=== PATIENT | female | born 1980 | race Caucasian/White ===

== ENCOUNTER 2021-05-15 08:00 | Outpatient (CLI) | payer OTHER ==
[2021-05-15 21:47] LABS: CHLAMYDIA TRACHOMATIS DNA NEGATIVE (NEGATIVE); NEISSERIA GONORRHOEAE DNA NEGATIVE (NEGATIVE); TRICHOMONAS VAGINALIS DNA NEGATIVE (NEGATIVE)
== END 2021-05-15 23:59 | disposition home or self-care (01) ==
LOC: LAB.WC 08:00
PROVIDERS: ATTEND Advanced Practice Midwife
DX: Z00.00 Encounter for general adult medical examination without abnormal findings (principal); Z11.3 Encounter for screening for infections with a predominantly sexual mode of transmission
CPT/HCPCS: 87491; 87591; 87661

== ENCOUNTER 2021-07-17 15:39 | Outpatient (CLI) | payer OTHER ==
[2021-07-17 16:12] LABS: HCT - HEMATOCRIT 40.1 % (37.0-47.0); HGB - HEMOGLOBIN 13.3 g/dL (12.0-16.0); MEAN CORPUSCULAR HEMOGLOBIN 29.4 pg (27.0-31.0); MEAN CORPUSCULAR HGB CONC 33.2 g/dL (32.0-36.0); MEAN CORPUSCULAR VOLUME 88.7 fL (81.0-99.0); MEAN PLATELET VOLUME 13.5 fL (7.9-10.8); RED BLOOD COUNT 4.52 10^6/uL (4.20-5.40); RED CELL DISTRIBUTION WIDTH 12.7 % (12.0-15.0); WHITE BLOOD COUNT 7.4 x10^3/uL (4.8-10.8)
[2021-07-17 16:35] LABS: CHOL/HDL RATIO 2.6 (<4.4); CHOLESTEROL 189 mg/dL; HDL CHOLESTEROL 72 mg/dL; LDL CHOLESTEROL,CALCULATED 89 mg/dL; LDL/HDL RATIO 1.2 (<4.4); TRIGLYCERIDES 139 mg/dL; VLDL CHOLESTEROL 28 mg/dL
[2021-07-17 16:39] LABS: T4 (THYROXINE) 6.28 ug/dL (6.09-12.23)
[2021-07-17 16:42] LABS: THYROID STIMULATING HORMONE 2.18 uIU/mL (0.34-5.60)
[2021-07-17 20:19] LABS: ESTIMATED AVERAGE GLUCOSE 94 mg/dL (70-100); HEMOGLOBIN A1c% 4.9 % (4.27-6.07)
== END 2021-07-17 15:40 | disposition home or self-care (01) ==
LOC: LAB 15:39
PROVIDERS: ATTEND Advanced Practice Midwife
DX: Z00.00 Encounter for general adult medical examination without abnormal findings (principal); Z13.21 Encounter for screening for nutritional disorder; Z13.29 Encounter for screening for other suspected endocrine disorder; Z11.3 Encounter for screening for infections with a predominantly sexual mode of transmission
CPT/HCPCS: 36415; 80061; 82306; 83036; 83721; 84436; 84443; 84480; 85027

== ENCOUNTER 2022-12-12 12:56 | Outpatient (CLI) | payer OTHER ==
--- NOTE | 2022-12-13 10:36 | Mammography Report ---
BILATERAL DIGITAL SCREENING MAMMOGRAM 3D/2D: 12/12/2022 CLINICAL: Baseline exam. Routine screening. No prior exams were available for comparison. There are scattered areas of fibroglandular density in both breasts (category b / 25%-50% glandular t issue). There is a possible focal asymmetry in the right breast at 6 o'clock anterior depth. There is a 1.2 cm oval equal density focal asymmetry in the left breast at 12 o'clock middle depth. No other significant masses or calcifications are seen in either breast. IMPRESSION: INCOMPLETE: NEEDS ADDITIONAL IMAGING EVALUATION The possible focal asymmetry in the right breast at 6 o'clock anterior depth is indeterminate. Addit ional views with possible ultrasound are recommended. The 1.2 cm oval equal density focal asymmetry in the left breast at 12 o'clock middle depth is indete rminate. Additional views with possible ultrasound are recommended. This exam was interpreted at Station ID: [id number]. NOTE: For mammograms, a report in lay terms will be sent to the patient. Approximately 15% of breast malignancies will not be visualized mammographically. In the management of a palpable breast mass, a negative mammogram must not discourage biopsy of a clinically suspicious lesion. Electronically Signed By: Dillon wolf/kimmy:12/12/2022 17:12:19 ACR BI-RADS Category 0: Incomplete 3340F PARENCHYMAL PATTERN: (A) - The breast(s) demonstrate(s) scattered fibroglandular densities. BI-RADS CATEGORY: (0) - 0 Mammo and [place] [id number] Immediate follow-up LATERALITY: (B)
== END 2022-12-12 12:57 | disposition home or self-care (01) ==
LOC: DI.N 12:56
PROVIDERS: ATTEND Nurse Practitioner
DX: Z12.31 Encounter for screening mammogram for malignant neoplasm of breast (principal); R92.8 Other abnormal and inconclusive findings on diagnostic imaging of breast

== ENCOUNTER 2022-12-26 09:53 | Outpatient (CLI) | payer OTHER ==
--- NOTE | 2022-12-27 09:43 | Ultrasound Report ---
LIMITED ULTRASOUND OF RIGHT BREAST: 12/26/2022 CLINICAL: Patient returns today to evaluate a focal asymmetry in the right breast. Comparison is made to exams dated: 12/26/2022 mammogram and 12/12/2022 mammogram - [facility]. Real-time ultrasound of the right breast 6 o'clock region was performed. Mejia scale images of the re al-time examination were reviewed. No significant abnormalities were seen sonographically in the right breast in the region of possible focal asymmetry. IMPRESSION: NEGATIVE There is no sonographic evidence of malignancy. A 1 year screening mammogram is recommended. This exam was interpreted at Station ID: [id number]. Electronically Signed By: Edmond Witt M.D. slc/:12/26/2022 11:33:09 Ultrasound BI-RADS: 1 Negative BI-RADS CATEGORY: (1) - 1 RECOMMENDATION: (ANNUAL) - Recommend routine annual screening mammography. [id number] 1 year screening LATERALITY: (B)
--- NOTE | 2022-12-27 09:43 | Ultrasound Report ---
LIMITED ULTRASOUND OF LEFT BREAST: 12/26/2022 CLINICAL: Patient returns today to evaluate a focal asymmetry in the left breast. Comparison is made to exams dated: 12/26/2022 mammogram, 12/12/2022 mammogram, [facility] Color flow and real-time ultrasound of the left breast 12-1 o'clock region were performed. Mejia scal e images of the real-time examination were reviewed. There is a 0.6 cm x 0.5 cm x 0.3 cm oval simple cyst in the left breast at 1 o'clock middle depth 8 c m from the nipple. This oval simple cyst is anechoic. This correlates with mammography findings. C olor flow imaging demonstrates that there is no vascularity present. IMPRESSION: BENIGN There is no sonographic evidence of malignancy. The 0.6 cm simple cyst in the left breast is benign. A 1 year screening mammogram is recommended. This exam was interpreted at Station ID: [id number]. Electronically Signed By: Edmond Witt M.D. slc/:12/26/2022 11:31:41 Ultrasound BI-RADS: 2 Benign BI-RADS CATEGORY: (2) - 2 RECOMMENDATION: (ANNUAL) - Recommend routine annual screening mammography. [id number] 1 year screening LATERALITY: (B)
--- NOTE | 2022-12-27 09:43 | Mammography Report ---
BILATERAL DIGITAL DIAGNOSTIC MAMMOGRAM 3D/2D WITH SPOT COMPRESSION: 12/26/2022 CLINICAL: Patient returns today to evaluate asymmetries in bilateral breasts. Comparison is made to exam dated: 12/12/2022 mammogram - [facility]. There are scattered areas of fibroglandular density in both breasts (category b / 25%-50% glandular t issue). There is a possible focal asymmetry in the right breast at 6 o'clock anterior depth. This is not see n in additional views. There is a oval focal asymmetry in the left breast at 12 o'clock middle depth. No other significant masses or calcifications are seen in either breast. IMPRESSION: INCOMPLETE: NEEDS ADDITIONAL IMAGING EVALUATION The possible focal asymmetry in the right breast at 6 o'clock anterior depth is indeterminate. The oval focal asymmetry in the left breast at 12 o'clock middle depth resembles a cyst and is indete rminate. A targeted ultrasound is recommended and will immediately follow. This exam was interpreted at Station ID: [id number]. NOTE: For mammograms, a report in lay terms will be sent to the patient. Approximately 15% of breast malignancies will not be visualized mammographically. In the management of a palpable breast mass, a negative mammogram must not discourage biopsy of a clinically suspicious lesion. Electronically Signed By: Edmond Witt M.D. slc/:12/26/2022 11:32:12 ACR BI-RADS Category 0: Incomplete 3340F PARENCHYMAL PATTERN: (A) - The breast(s) demonstrate(s) scattered fibroglandular densities. BI-RADS CATEGORY: (0) - 0 Ultrasound [id number] Immediate follow-up LATERALITY: (B)
== END 2022-12-26 09:54 | disposition home or self-care (01) ==
LOC: DI 09:53
PROVIDERS: ATTEND Nurse Practitioner
DX: N60.02 Solitary cyst of left breast (principal)

== ENCOUNTER 2023-07-02 09:58 | Outpatient (CLI) | payer OTHER ==
--- NOTE | 2023-07-03 16:17 | Ultrasound Report ---
LIMITED ULTRASOUND OF LEFT BREAST: 07/02/2023 CLINICAL: Patient returns for a 6 month follow up of the left breast. Comparison is made to exams dated: 12/26/2022 ultrasound, 12/26/2022 mammogram, and 12/12/2022 mammogra [facility]. Color flow ultrasound of the left breast 1 o'clock region was performed. Mejia scale images of the re al-time examination were reviewed. There is a benign 0.5 cm x 0.3 cm x 0.5 cm oval simple cyst in the left breast at 1 o'clock middle de pth 8 cm from the nipple. This oval simple cyst is anechoic. This correlates with mammography findi ngs. Color flow imaging demonstrates that there is no vascularity present. IMPRESSION: BENIGN There is no sonographic evidence of malignancy. The 0.5 cm x 0.3 cm x 0.5 cm oval simple cyst in the left breast is benign. A 1 year screening mammogram is recommended. This exam was interpreted at Station ID: [id number]. Electronically Signed By: Phoenix Alexis M.D. acr/:07/02/2023 11:02:56 Ultrasound BI-RADS: 2 Benign BI-RADS CATEGORY: (2) - 2 Mammogram [id number] 1 year screening LATERALITY: (B)
== END 2023-07-02 09:59 | disposition home or self-care (01) ==
LOC: DI 09:58
PROVIDERS: ATTEND Nurse Practitioner
DX: N60.02 Solitary cyst of left breast (principal)